=== PATIENT | female | born 1990 | race Caucasian/White ===

== ENCOUNTER 2019-12-16 19:17 | Emergency (ER) | payer SELFPAY ==
[2019-12-16 20:35] VITALS: BP 119/75
[2019-12-16] MEDS ORDERED: OXYCODONE-ACETAMINOPHEN 5-325 MG TABLET PO ONE (20:46)
[2019-12-16] MEDS ORDERED: CLINDAMYCIN HCL 150 MG CAPSULE PO ONE (20:50)
--- NOTE | 2019-12-16 20:50 | ER Document Report ---
HPI - HPI Time Seen by Provider: 12/16/19 20:30 Pain Level: 5 - ROS Notes: Otherwise healthy 29-year-old female presenting to the emergency department chief complaint of dental pain and swelling. Patient reports pain to the left lower jawline. She states she did go to her dentist however they could not see her. She states they told her to come to the emergency department to get on antibiotics. She denies any fever or chills. Systems Reviewed and Negative: Yes All other systems reviewed and negative - EENT Notes: dental pain - REPRODUCTIVE Reproductive: DENIES: : Past Medical History - General Information source: Patient - Social History Smoking Status: Never Smoker Frequency of alcohol use: None Drug Abuse: None Family History: CAD, CVA, DM, Hyperlipidemia, Hypertension, Malignancy, Thyroid Disfunction - Past Medical History Cardiac Medical History: Reports: Hx Heart Murmur Endocrine Medical History: Reports: Hx Hypothyroidism - Immunizations Immunizations up to date: Yes Hx Diphtheria, Pertussis, Tetanus Vaccination: Yes Vertical Provider Document - CONSTITUTIONAL Notes: PHYSICAL EXAMINATION: GENERAL: Well-appearing, well-nourished and in no acute distress. HEAD: Atraumatic, normocephalic. EYES: Pupils equal round extraocular movements intact, conjunctiva are normal. ENT: Nares patent, erythema surrounding tooth #19, tooth #19 is fractured. No fiorella abscess. No trismus. NECK: Normal range of motion LUNGS: No respiratory distress Musculoskeletal: Normal range of motion NEUROLOGICAL: Normal speech, normal gait. PSYCH: Normal mood, normal affect. SKIN: Warm, Dry, normal turgor, no rashes or lesions noted. - INFECTION CONTROL TRAVEL OUTSIDE OF THE [place] IN LAST 30 DAYS: No Course - Re-evaluation Re-evalutation: Presentation is most consistent with likely an infected tooth. Airway is patent. Vitals within normal limits. Patient is able swallow without any difficulty. There is no significant facial swelling. No evidence of Rubio angina, apical abscess, or airway obstruction. Patient will be started on a ntibiotics. I've instructed to follow-up with dentistry as earliest ability for definitive management. At this time will discharge with return precautions and follow-up recommendations. Verbal discharge instructions given a the bedside and opportunity for questions given. Medication warnings reviewed. Patient is in agreement with this plan and has verbalized understanding of return precautions and the need for primary care follow-up in the next 24-72 hours. - Vital Signs Vital signs: Temp Pulse Resp BP Pulse Ox 98.1 F 68 16 119/75 100 12/16/19 20:29 12/16/19 20:29 12/16/19 20:29 12/16/19 20:29 12/16/19 20:29 Discharge - Discharge Clinical Impression: Dental infection Condition: Stable Disposition: HOME, SELF-CARE Additional Instructions: Please keep the appointment you have scheduled with your dentist. Call the oral surgeon to schedule your consultation. Take medications as prescribed. Please note that there is acetaminophen in the Percocet. Prescriptions: Oxycodone HCl/Acetaminophen [Percocet 5-325 mg Tablet] 1 tab PO Q6HP PRN #12 tablet PRN Reason: Clindamycin HCl 300 mg PO TID #30 capsule
== END 2019-12-16 21:01 | disposition home or self-care (01) ==
LOC: ER 19:17
DX: K04.7 Periapical abscess without sinus (principal)
CPT/HCPCS: 99284